=== PATIENT | female | born 1955 | race Caucasian/White ===

== ENCOUNTER 2016-11-19 16:07 | Emergency (ER) | payer BC ==
--- NOTE | 2016-11-19 17:39 | ER Document Report ---
ED Extremity Problem, Lower - General Chief Complaint: Fall, R leg, knee pain Stated Complaint: FALL,LEG PAIN Time Seen by Provider: 11/19/16 17:23 Mode of Arrival: Wheelchair Information source: Patient Notes: 61-year-old female presents to ED for pain to her right knee after she slipped and earlier today. She states she was walking on uneven sidewalk in [facility] when she tripped and fell and was able to walk to meet her at that time then she got in the car to start on her way home and within an hour later when they stopped she states she is unable to bear any weight on her foot on the right side states they got back in the car and drove to [place] to go to the bathroom and was again not able to bear weight on her right foot. So they drove home and came to the emergency room to have her knee checked out. States she knows she twisted her ankle and she fell on her right knee which has an abrasion and on her buttocks. She answers questions appropriately but was unable to bear weight when I transferred her to a wheelchair to go for her x-ray. TRAVEL OUTSIDE OF THE [place] IN LAST 30 DAYS: No - HPI Patient complains to provider of: Injury, Pain Location: Knee - right Occurred: This morning Where: Outdoors, Public place Onset/Duration: Sudden, Persistent Quality of pain: Burning, Sharp, Throbbing Severity: Severe Pain Level: 5 Context: Fell, Other Recent injury: Yes Associated symptoms: Painful ambulation Exacerbated by: Hanging down, Movement, Walking Relieved by: Nothing - Related Data Allergies/Adverse Reactions: Adhesive Bandage * [Adhesive Bandage] Allergy (Intermediate, Verified 10/08/13 18:54) Blisters amoxicillin trihydrate [From Augmentin] Allergy (Intermediate, Verified 18:54) Hives Potassium Clavulanate * [From Augmentin] Allergy (Intermediate, Verified 18:54) Hives acetaminophen [From Percocet] Allergy (Verified 03/07/14 12:13) oxycodone HCl [From Percocet] Allergy (Verified 03/07/14 12:13) Cat gut sutures Allergy (Intermediate, Uncoded 10/08/13 18:54) Blisters Past Medical History - General Information source: Patient - Social History Smoking Status: Never Smoker Cigarette use (# per day): No Chew tobacco use (# tins/day): No Smoking Education Provided: No Frequency of alcohol use: Rare Drug Abuse: None Occupation: [employer] consultant Lives with: Family Family History: CVA, DM, Hyperlipidemia, Hypertension, Thyroid Disfunction - Past Medical History Cardiac Medical History: Reports: Hx Hypercholesterolemia Pulmonary Medical History: Reports: Hx Asthma - childhood EENT Medical History: Reports: None Neurological Medical History: Reports: None Endocrine Medical History: Reports: Hx Hypothyroidism Renal/ Medical History: Reports: Other - Endometriosis Malignancy Medical History: Reports: Other - Thyroid cancer GI Medical History: Reports: Hx Diverticulitis, Hx Gastroesophageal Reflux Disease, Hx Hiatal Hernia, Hx Irritable Bowel, Hx Ulcer, Hx Colonoscopy, Hx Endoscopy, Other - Pancreatitis, a large section of her small and large intestines removed with a temporary ileostomy and reversal Musculoskeltal Medical History: Reports Hx Arthritis Skin Medical History: Reports None Psychiatric Medical History: Reports: Hx Anxiety, Hx Depression Traumatic Medical History: Reports: None Infectious Medical History: Reports: None Past Surgical History: Reports: Hx Abdominal Surgery - 12 inches of large intestines 6 inches small specimens removed, Hx Appendectomy, Hx Bowel Diversion - Temporary ileostomy and reversal in 2013, Hx Bowel Surgery, Hx Section - x1, Hx Cholecystectomy, Hx Hysterectomy, Hx Thyroid Surgery - Thyroidectomy, Other - Abdominal surgery to repair nonhealing wound - Immunizations Immunizations up to date: Yes Hx Diphtheria, Pertussis, Tetanus Vaccination: Yes Hx Pneumococcal Vaccination: 06/23/09 Review of Systems - Review of Systems Constitutional: No symptoms reported EENT: No symptoms reported Cardiovascular: No symptoms reported Respiratory: No symptoms reported Gastrointestinal: No symptoms reported Genitourinary: No symptoms reported Female Genitourinary: No symptoms reported Musculoskeletal: Other - Right knee pain after a fall with an abrasion Skin: Other - Abrasion right knee Hematologic/Lymphatic: No symptoms reported Neurological/Psychological: No symptoms reported -: Yes All other systems reviewed and negative Physical Exam - Vital signs Vitals: Temp Pulse Resp BP Pulse Ox 98.2 F 72 16 159/77 H 97 11/19/16 16:41 11/19/16 16:41 11/19/16 16:41 11/19/16 16:41 11/19/16 16:41 Interpretation: Normal - General General appearance: Appears well, Alert - HEENT Head: Normocephalic, Atraumatic Eyes: Normal Pupils: PERRL - Respiratory Respiratory status: No respiratory distress Chest status: Nontender Breath sounds: Normal Chest palpation: Normal - Cardiovascular Rhythm: Regular Heart sounds: Normal auscultation Murmur: No - Abdominal Inspection: Normal Distension: No distension Bowel sounds: Normal Tenderness: Nontender Organomegaly: No organomegaly - Back Back: Normal, Nontender - Extremities General upper extremity: Normal inspection, Nontender, Normal color, Normal ROM , Normal temperature General lower extremity: Normal color, Normal temperature Knee: Tender, Abrasion, Pain with ROM, Patellar tendon intact, Unable to bear weight. No: Deformity, Dislocation, Drawer's test instability, Ecchymosis, Instability, Joint effusion, Laceration, Laxity with valgus stress, Laxity with varus stress, Popliteal fossa tender, Tender joint line - Neurological Neuro grossly intact: Yes Cognition: Normal Orientation: AAOx4 [place] Coma Scale Eye Opening: Spontaneous Michael Coma Scale Verbal: Oriented Michael Coma Scale Motor: Obeys Commands Michael Coma Scale Total: 15 Speech: Normal Motor strength normal: LUE, RUE, LLE, RLE Sensory: Normal - Psychological Associated symptoms: Normal affect, Normal mood - Skin Skin Temperature: Warm Skin Moisture: Dry Skin Color: Normal Course - Re-evaluation Re-evalutation: 11/19/16 20:37 Discussed x-ray and CT results with patient and family. Written report and CD of results given to patient to follow-up with Dr. Sprague. Discussed x-ray and CT with Dr. Johnson. She recommended a long posterior splint with crutches and no weightbearing narcotics and follow-up with orthopedics. These were all completed and patient discharged home with a prescription for Tow as she is allergic to Percocet. - Vital Signs Vital signs: Temp Pulse Resp BP Pulse Ox 98.3 F 80 18 162/80 H 89 L 11/19/16 20:25 11/19/16 20:25 11/19/16 20:25 11/19/16 20:25 11/19/16 20:25 - Diagnostic Test Radiology reviewed: Image reviewed, Reports reviewed Procedures - Immobilization Right Knee Time completed: 20:38 Pre-Proc Neuro Vasc Exam: Normal Immobilizer type: Crutches, Long leg posterior Performed by: PCT Post-Proc Neuro Vasc Exam: Normal Alignment checked and good: Yes Discharge - Discharge Clinical Impression: Closed fracture of lateral portion of right tibial plateau Qualifiers: Encounter type: initial encounter Qualified Code(s): S82.121A - Displaced fracture of lateral condyle of right tibia, initial encounter for closed fracture Condition: Stable Disposition: HOME, SELF-CARE Additional Instructions: Fractured Tibia You have a fracture of the tibia, the crocker bone. The physician has assessed the seriousness of this fracture and has determined that no operation or hospitalization is required. The fracture should heal well, but must be monitored by re-examination and possibly X-rays. The initial treatment of this fracture is immobilization, ice packs, and elevation. A tibial fracture requires protection for about four to eight weeks, depending on the nature of the fracture and the age of the patient. Usually, a long-leg cast is required. Often no weight-bearing can be allowed at first despite casting. This type of fracture sometimes does not heal well. You MUST follow the doctors instructions, and call the doctor if you have any problems. Call the doctor or return at once if pain becomes severe, or if numbness or weakness develops in the foot or toes. No weightbearing until assessed by orthopedic. Do not let your toe touch the floor. SPLINT PRECAUTIONS: A splint has been placed. This will protect the area while healing begins. Your problem does NOT normally require a cast. It MUST, however, be held still! Keep the splint on ALL THE TIME until instructed to remove it by the doctor. As you begin to use the area, be careful. You shouldn't do anything which causes discomfort -- you may disturb the injury even with the splint in place. After the initial period of rest and elevation, if splint does not prevent pain when you move, come back. You may require placement of a different splint , or a cast. If there is unexpected severe pain, or numbness, discoloration, or swelling beyond the splint, you should return at once. If you feel that the splint has broken or become loose, come back. USE OF CRUTCHES: The doctor has recommended that you not bear weight at this time. You will need to use crutches. Adjust the crutches so the tops come to about two inches under the armpit while you are standing upright. Use your hands -- not your armpits -- to support your weight. To get into a chair, support yourself with one crutch on the injured side. Hold the chair with the other hand, then lower yourself while putting all your weight on the good leg. Going up stairs is `good leg up, step up, then bring up crutches and bad leg.' Down stairs is `bad leg and crutches down, then bring good leg down.' If you develop numbness or swelling in an arm or hand, you are using the crutches incorrectly. Return if you are having any problems with the crutches. ICE & ELEVATION: Apply ice packs frequently against the painful area. Many different schedules are recommended, such as "20 minutes on, 20 minutes off" or "one hour ice, two hours rest." If you need to work, you may need to go longer between ice treatments. You should plan to have the area ice packed AT LEAST one- fourth of the time. The ice should be applied over the wrap, tape, or splint, or over a layer of cloth -- not directly against the skin. Some ice bags have a built-in cloth and can be put directly on the skin. Your injured part should be elevated as much as possible over the next 48 hours. Try to keep the injury above the level of the heart. Avoid use of the injured area. Elevation and rest will decrease the swelling. ORAL NARCOTIC MEDICATION: You have been given a prescription for pain control. This medication is a narcotic. It's best taken with food, as nausea can result if taken on an empty stomach. Don't operate machinery or drive within six hours of taking this medication. Do not combine this medicine with alcohol, or with any medication which can cause sedation (such as cold tablets or sleeping pills) unless you get permission from the physician. Narcotics tend to cause constipation. If possible, drink plenty of fluids and eat a diet high in fiber and fruits. Please be aware that prescription narcotics also have the potential for abuse. People become addicted to these medications because of the general sense of wellbeing that they induce. This feeling along with a significant reduction in tension, anxiety, and aggression provides a stimulating seductive quality to these drugs. Once your pain is under control, we encourage you to discard your unused narcotics. Please return to ED for any increase in pain to the lower leg any increase in swelling to the lower leg. Any pain out of proportion to what you are feeling now. You will need to return to the emergency room right away if any of these symptoms occur. FOLLOW-UP CARE: If you have been referred to a physician for follow-up care, call the physician s office for an appointment as you were instructed or within the next two days. If you experience worsening or a significant change in your symptoms, notify the physician immediately or return to the Emergency Department at any time for re-evaluation. Prescriptions: Hydrocodone/Acetaminophen [Tow 5-325 mg Tablet] 1 tab PO Q4HP PRN #20 tablet PRN Reason: Forms: Elevated Blood Pressure, Return to Work Referrals: CODY SPRAGUE MD [ACTIVE STAFF] - Follow up as needed
[2016-11-19] MEDS ORDERED: KETOROLAC TROMETHAMINE 60 MG/2 ML SDV IM ONE (18:02)
--- NOTE | 2016-11-19 18:02 | RADIOLOGY REPORT (SQ) ---
EXAM DESCRIPTION: KNEE RIGHT 4 VIEWS COMPLETED DATE/TIME: 11/19/2016 5:42 pm REASON FOR STUDY: Pain s/p fall COMPARISON: None. NUMBER OF VIEWS: Four views. TECHNIQUE: AP, lateral, and both oblique radiographic images acquired of the right knee. LIMITATIONS: None. FINDINGS: MINERALIZATION: Osteopenia. BONES: There is a fracture involving the lateral aspect of the lateral tibial plateau with minimal de pression. The fracture is in the sagittal plane. JOINT: There is a small joint effusion. A small posterior superior spur is present on the patella. SOFT TISSUES: No soft tissue swelling. No radio-opaque foreign body. OTHER: No other significant finding. IMPRESSION: 1. Lateral tibial plateau fracture as described. 2. 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 TECHNICAL DOCUMENTATION: JOB ID: [id number]- All Rights Reserved
[2016-11-19] MEDS ORDERED: HYDROCODONE/ACETAMINOPHEN 5-325 MG TABLET PO ONE (18:06)
--- NOTE | 2016-11-19 19:14 | RADIOLOGY REPORT (SQ) ---
EXAM DESCRIPTION: CT RT LOWER EXTREMITY WITHOUT COMPLETED DATE/TIME: 11/19/2016 7:01 pm REASON FOR STUDY: tibial plateau fracture COMPARISON: Plain films dated 11/19/2016 TECHNIQUE: Axial imaging performed through the right knee with reformatted coronal and sagittal imag ing windowed for bone and soft tissues. Images saved to PACS. 3D IMAGING: Were 3D images as MIP, SSD, or volume rendering performed at the work station? No All CT scanners at this facility use dose modulation, iterative reconstruction, and/or weight based d osing when appropriate to reduce radiation dose to as low as reasonably achievable (ALARA). [facility]: Dose Right [facility]: CareDose [facility]: Dose Right [facility]: Teradose 4D [facility]: Smart Technologies LIMITATIONS: None. RADIATION DOSE: 4.12 mGy. FINDINGS: SOFT TISSUES: No obvious swelling or foreign body. BONES: The previously described lateral tibial plateau fracture is again identified. Fracture involv es the posterolateral portion of the lateral tibial plateau. There is minimal depression of the frac ture fragment. No other evidence for fracture is seen. MINERALIZATION: Normal. OTHER: Joint effusion is identified. IMPRESSION: Fracture of the lateral tibial plateau of the right knee as noted above TECHNICAL DOCUMENTATION: JOB ID: [id number] Quality ID # [id number]: Final reports with documentation of one or more dose reduction techniques (e.g., Au tomated exposure control, adjustment of the mA and/or kV according to patient size, use of iterative reconstruction technique) 2010 [employer]- All Rights Reserved
[2016-11-19 20:30] VITALS: BP 159/77
== END 2016-11-19 20:36 | disposition home or self-care (01) ==
LOC: ER 16:07
PROC: 2W3LX1Z Immobilization of Right Lower Extremity using Splint (ICD-10-PCS; principal; 2016-11-19)
DX: S82.121A Displaced fracture of lateral condyle of right tibia, initial encounter for closed fracture (principal); M79.604 Pain in right leg; M25.561 Pain in right knee; W01.0XXA Fall on same level from slipping, tripping and stumbling without subsequent striking against object, initial encounter; Y92.89 Other specified places as the place of occurrence of the external cause; E78.00 Pure hypercholesterolemia, unspecified; E03.9 Hypothyroidism, unspecified; Z88.0 Allergy status to penicillin; Z88.6 Allergy status to analgesic agent; Z85.850 Personal history of malignant neoplasm of thyroid; Z90.49 Acquired absence of other specified parts of digestive tract; Z90.710 Acquired absence of both cervix and uterus
CPT/HCPCS: 99284; 96372; 73564; 73700; 29505; J1885

== ENCOUNTER → 2017-03-05 | Outpatient (CLI) | payer BC ==
--- NOTE | 2017-03-06 10:13 | WOMENS IMAGING REPORT ---
EXAM DESCRIPTION: BILAT SCREENING MAMMO W/CAD COMPLETED DATE/TIME: 03/05/2017 10:40 am REASON FOR STUDY: SCREENING MAMMO Z12.31 ENCNTR SCREEN MAMMOGRAM FOR MALIGNANT NEOPLASM OF RAVINDER COMPARISON: Multiple since 2008 TECHNIQUE: Standard craniocaudal and mediolateral oblique views of each breast recorded using digita l acquisition. LIMITATIONS: None. FINDINGS: Findings present which are benign by mammographic criteria. No suspicious masses, calcifi cations or architectural distortion. Pertinent benign findings: Stable mildly prominent retroareolar ducts bilaterally Read with the assistance of CAD. .[facility] - R2 Cenova Version 1.3 .[facility] Imaging - R2 Cenova Version 1.3 .[facility] Imaging - R2 Cenova Version 2.4 .[facility] [place] - R2 Cenova Version 2.4 .[facility] - R2 Director Payer Version 9.2 Benign mammographic findings may include one or more of the following: Smooth masses, popcorn/rim/co arse calcifications, asymmetries, post-procedure changes, and lesions with long-standing stability. IMPRESSION: BENIGN MAMMOGRAPHIC FINDINGS. BIRADS 2 BREAST DENSITY: b. There are scattered areas of fibroglandular density. BIRAD: 2 BENIGN FINDING(S) RECOMMENDATION: ROUTINE SCREENING COMMENT: The patient has been notified of the results by letter per SA requirements. Additional no tification policies are in place for contacting patient with suspicious or incomplete findings. Quality ID #225: The [place] [employer] recommends an annual screening mammogram for women aged 40 years or over. This facility utilizes a reminder system to ensure that all patients receive reminder letters, and/or direct phone calls for appointments. This includes reminders for routine scr eening mammograms, diagnostic mammograms, or other Breast Imaging Interventions when appropriate. Th is patient will be placed in the appropriate reminder system. The [place] [employer] (ACR) has developed recommendations for screening MRI of the breast s in certain patient populations, to be used in conjunction with mammography. Breast MRI surveillanc e may be appropriate for women with more than 20% lifetime risk of developing breast cancer as deter mined by genetic testing, significant family history of the disease, or history of mantle radiation f or Hodgkins Disease. ACR Practice Guidelines 2008. TECHNICAL DOCUMENTATION: FINDING NUMBER: (1) ASSESSMENT: (1) JOB ID: [id number] [employer]- All Rights Reserved
== END ==
LOC: WI 08:43
PROVIDERS: ATTEND Family Medicine
DX: Z12.31 Encounter for screening mammogram for malignant neoplasm of breast (principal); Z78.0 Asymptomatic menopausal state
CPT/HCPCS: 77067; G0202

== ENCOUNTER → 2017-03-06 | Outpatient (CLI) | payer BC | LOC: OD 09:47 | PROVIDERS: ATTEND Family Medicine | DX: R07.89 Other chest pain (principal) | CPT/HCPCS: 36415; 85379 ==

== ENCOUNTER → 2017-12-01 | Outpatient (CLI) | payer BC ==
--- NOTE | 2017-12-01 10:52 | WOMENS IMAGING REPORT ---
EXAM DESCRIPTION: U/S ABDOMEN LIMITED COMPLETED DATE/TIME: 12/01/2017 9:59 am REASON FOR STUDY: VENTRAL HERNIA WITHOUT OBSTRUCTION K43.9 VENTRAL HERNIA WITHOUT OBSTRUCTION OR GA NGRENE COMPARISON: None. TECHNIQUE: Dynamic and static grayscale images acquired of the abdomen and recorded on PACS. Additio suraj selected color Doppler and spectral images recorded. LIMITATIONS: None. FINDINGS: LEFT KIDNEY: The left kidney measures 11.4 x 5.2 x 4.9 cm, normal size. Normal echogenic ity. No solid or suspicious masses. No hydronephrosis. No calcifications. SPLEEN: The spleen measures 10.4 cm in length, normal size. PERITONEAL AND RIGHT PLEURAL SPACE: No ascites or effusions. OTHER: A small umbilical hernia is visualized. No evidence of hernia visualized by ultrasound examination at the palpable site in the left upper flori drant of the abdomen. IMPRESSION: 1. Small umbilical hernia is visualized. This finding correlates to the CT examination dated 12/26/2014. 2. No evidence of hernia visualized by ultrasound examination at the palpable site in the left upper quadrant of the abdomen. TECHNICAL DOCUMENTATION: JOB ID: [id number] [employer]- All Rights Reserved Reading location - IP/workstation name: [email or web address]
== END ==
LOC: WI 08:14
PROVIDERS: ATTEND Family Medicine
DX: K43.9 Ventral hernia without obstruction or gangrene (principal)
CPT/HCPCS: 76705

== ENCOUNTER → 2018-03-17 | Outpatient (CLI) | payer BC ==
--- NOTE | 2018-03-17 16:10 | WOMENS IMAGING REPORT ---
EXAM DESCRIPTION: BONE DENSITY HIP/SPINE COMPLETED DATE/TIME: 03/17/2018 4:02 pm REASON FOR STUDY: BONE DENSITY TEST/Z78.0 Z12.31 ENCNTR SCREEN MAMMOGRAM FOR MALIGNANT NEOPLASM OF RAVINDER COMPARISON: 2009, 2012, 2015 TECHNIQUE: Dual-Energy X-ray Absorptiometry (DEXA) of the AP Spine and Hip. LIMITATIONS: None. FINDINGS: LUMBAR SPINE: The bone mineral density (BMD) measured from L1-L4 in the AP projection correlates with a T-score of -1.2, which is osteopenic as defined by the World Health Organization. This is stable compared to 20 16 HIP: The bone mineral density (BMD) measured in the left femoral neck at the hip correlates with a T-score of -3.0, which is osteoporotic as defined by the World Health Organization. This represents an 11% decline in bone density since 2016 IMPRESSION: 1. LUMBAR SPINE: Osteopenic 2. HIP: Osteoporotic COMMENT: The World Health Organization defines low BMD as follows: T-score: Normal: Greater than -1.0 Osteopenia: Between -1.0 and -2.5 Osteoporosis: Less than -2.5 without fractures Established osteoporosis: Less than -2.5 with fractures In general, you may wish to consider: Diagnosis Treatment Follow-up DEXA Normal BMD Prevention 2-3 years Osteopenia Prevention/Therapy 1-2 years Osteoporosis Therapy Yearly TECHNICAL DOCUMENTATION: JOB ID: [id number] [employer]- All Rights Reserved Reading location - IP/workstation name: [email or web address]
--- NOTE | 2018-03-17 16:12 | WOMENS IMAGING REPORT ---
EXAM DESCRIPTION: 3D SCREENING MAMMO BILAT COMPLETED DATE/TIME: 03/17/2018 4:01 pm REASON FOR STUDY: BILATERAL SCREENING MAMMO/Z12.31 Z12.31 ENCNTR SCREEN MAMMOGRAM FOR MALIGNANT JEN PLASM OF RAVINDER COMPARISON: [id number] TECHNIQUE: Standard craniocaudal and mediolateral oblique views of each breast recorded using digita l acquisition and breast tomosynthesis. LIMITATIONS: None. FINDINGS: No masses, calcifications or architectural distortion. No areas of suspicion. Read with the assistance of CAD. .[facility] - R2 Cenova Version 1.3 .[facility] Imaging - R2 Cenova Version 1.3 .[facility] Imaging - R2 Cenova Version 2.4 .[facility] [place] R2 Cenova Version 2.4 .[facility] - R2 Breeding Manager Version 9.2 IMPRESSION: NORMAL MAMMOGRAM. BIRADS 1. BREAST DENSITY: b. There are scattered areas of fibroglandular density. BIRAD: 1 NEGATIVE RECOMMENDATION: ROUTINE SCREENING COMMENT: The patient has been notified of the results by letter per SA requirements. Additional no tification policies are in place for contacting patient with suspicious or incomplete findings. Quality ID #225: The [place] [employer] recommends an annual screening mammogram for women aged 40 years or over. This facility utilizes a reminder system to ensure that all patients receive reminder letters, and/or direct phone calls for appointments. This includes reminders for routine scr eening mammograms, diagnostic mammograms, or other Breast Imaging Interventions when appropriate. Th is patient will be placed in the appropriate reminder system. The [place] [employer] (ACR) has developed recommendations for screening MRI of the breast s in certain patient populations, to be used in conjunction with mammography. Breast MRI surveillanc e may be appropriate for women with more than 20% lifetime risk of developing breast cancer as deter mined by genetic testing, significant family history of the disease, or history of mantle radiation f or Hodgkins Disease. ACR Practice Guidelines 2008. DBT Technology DBT is a type of tomographic mammography. With conventional mammography, overlapping breast tissue ma y make lesions difficult to detect, even with good compression. DBT uses an x-ray tube that rotates a round the breast, taking images at different angles. These images are then combined to create thin sl ices of the breast that the radiologist can view as a 3D reconstruction. The [employer] unit can perform full-field digital mammograms (2D imaging); or DBT (3D imaging); or both, in a combination mode that quickly performs both the mammogram and the tomosynthesis scan while the breast is still compressed. PQRS 6045F: Fluoroscopic imaging is not utilized for breast tomosynthesis. TECHNICAL DOCUMENTATION: FINDING NUMBER: (1) ASSESSMENT: (1) JOB ID: [id number] [employer]- All Rights Reserved Reading location - IP/workstation name: [email or web address]
== END ==
LOC: WI 15:20
PROVIDERS: ATTEND Family Medicine
DX: Z12.31 Encounter for screening mammogram for malignant neoplasm of breast (principal); Z78.0 Asymptomatic menopausal state
CPT/HCPCS: 77063; 77067; 77080

== ENCOUNTER 2018-08-15 11:13 | Emergency (ER) | payer BC ==
[2018-08-15] MEDS ORDERED: NORMAL SALINE 1000 ML 1,000 ML IV ONE (11:30)
[2018-08-15] MEDS ORDERED: ONDANSETRON HCL INJ/PF 4 MG/2 ML SDV IV ONE (11:31)
--- NOTE | 2018-08-15 11:31 | ER Document Report ---
ED General - General Chief Complaint: Abdominal Pain Stated Complaint: VOMITING,DIARRHEA Time Seen by Provider: 08/15/18 11:24 Primary Care Provider: MENDY JARAMILLO MD [Primary Care Provider] - Follow up as needed TRAVEL OUTSIDE OF THE [place] IN LAST 30 DAYS: No - Related Data Allergies/Adverse Reactions: Adhesive Bandage * [Adhesive Bandage] Allergy (Intermediate, Verified 08/15/18 11:14) Blisters amoxicillin trihydrate [From Augmentin] Allergy (Intermediate, Verified 08/15/18 11:14) Hives Potassium Clavulanate * [From Augmentin] Allergy (Intermediate, Verified 08/15/18 11:14) Hives acetaminophen [From Percocet] Allergy (Verified 08/15/18 11:14) oxycodone HCl [From Percocet] Allergy (Verified 08/15/18 11:14) Cat gut sutures Allergy (Intermediate, Uncoded 08/15/18 11:14) Blisters Past Medical History - Social History Smoking Status: Unknown if Ever Smoked Chew tobacco use (# tins/day): No Frequency of alcohol use: None Drug Abuse: None Family History: CVA, DM, Hyperlipidemia, Hypertension, Thyroid Disfunction Patient has suicidal ideation: No Patient has homicidal ideation: No - Past Medical History Cardiac Medical History: Reports: Hx Hypercholesterolemia Pulmonary Medical History: Reports: Hx Asthma - childhood Denies: Hx Tuberculosis Endocrine Medical History: Reports: Hx Hypothyroidism Renal/ Medical History: Denies: Hx Peritoneal Dialysis GI Medical History: Reports: Hx Diverticulitis, Hx Gastroesophageal Reflux Disease, Hx Hiatal Hernia, Hx Irritable Bowel, Hx Ulcer, Hx Colonoscopy, Hx Endoscopy Musculoskeletal Medical History: Reports Hx Arthritis Psychiatric Medical History: Reports: Hx Anxiety, Hx Depression Past Surgical History: Reports: Hx Abdominal Surgery - 12 inches of large intestines 6 inches small specimens removed, Hx Appendectomy, Hx Bowel Diversion - Temporary ileostomy and reversal in 2013, Hx Bowel Surgery, Hx Section - x1, Hx Cholecystectomy, Hx Gynecologic Surgery - hysterectomy, Hx Hysterectomy, Hx Thyroid Surgery - Thyroidectomy, Other - Abdominal surgery to repair nonhealing wound - Immunizations Immunizations up to date: Yes Hx Diphtheria, Pertussis, Tetanus Vaccination: Yes Hx Pneumococcal Vaccination: 06/23/09 Physical Exam - Vital signs Vitals: Temp Pulse Resp BP Pulse Ox 97.7 F 114 H 18 128/59 H 97 08/15/18 11:18 08/15/18 11:18 08/15/18 11:18 08/15/18 11:18 08/15/18 11:18 Course - Vital Signs Vital signs: Temp Pulse Resp BP Pulse Ox 97.7 F 114 H 18 128/59 H 97 08/15/18 11:18 08/15/18 11:18 08/15/18 11:18 08/15/18 11:18 08/15/18 11:18 Discharge - Discharge Referrals: MENDY JARAMILLO MD [Primary Care Provider] - Follow up as needed
--- NOTE | 2018-08-15 11:42 | ER Document Report ---
ED Medical Screen (RME) - General Chief Complaint: Abdominal Pain Stated Complaint: VOMITING,DIARRHEA Time Seen by Provider: 08/15/18 11:24 Primary Care Provider: MENDY JARAMILLO MD [Primary Care Provider] - Follow up as needed Notes: Patient is a 63-year-old female that presents to the emergency department for chief complaint of nausea, vomiting and diarrhea. Patient states his symptoms started last night and persisted this morning, she is had multiple episodes of watery diarrhea, none bilious and nonbloody vomiting she said leg cramping, feels that she got dehydrated. ROS: Other than noted above, the 12 point review of systems was reviewed with the patient and were negative, all pertinent findings are included in the HPI. PHYSICAL EXAMINATION: Vital signs reviewed. GENERAL: Patient appears uncomfortable HEAD: Atraumatic, normocephalic. EYES: Pupils equal round extraocular movements intact, conjunctiva are normal. ENT: Nares patent NECK: Normal range of motion CV: Heart rate tachycardic, regular rhythm LUNGS: No respiratory distress Musculoskeletal: Normal range of motion NEUROLOGICAL: Normal speech PSYCH: Normal mood, normal affect. MDM: Patient seen and examined for rapid initial assessment. Vital signs reviewed. She did have an episode of emesis in the triage area. A comprehensive ED assessment and evaluation of the patient, analysis of test results and completion of the medical decision making process will be conducted by additional ED providers. *Note is created using voice recognition software and may contain spelling, syntax or grammatical errors. TRAVEL OUTSIDE OF THE [place] IN LAST 30 DAYS: No - Related Data Allergies/Adverse Reactions: Adhesive Bandage * [Adhesive Bandage] Allergy (Intermediate, Verified 08/15/18 11:14) Blisters amoxicillin trihydrate [From Augmentin] Allergy (Intermediate, Verified 08/15/18 11:14) Hives Potassium Clavulanate * [From Augmentin] Allergy (Intermediate, Verified 08/15/18 11:14) Hives acetaminophen [From Percocet] Allergy (Verified 08/15/18 11:14) oxycodone HCl [From Percocet] Allergy (Verified 08/15/18 11:14) Cat gut sutures Allergy (Intermediate, Uncoded 08/15/18 11:14) Blisters Past Medical History - Social History Chew tobacco use (# tins/day): No Frequency of alcohol use: None Drug Abuse: None - Past Medical History Cardiac Medical History: Reports: Hx Hypercholesterolemia Pulmonary Medical History: Reports: Hx Asthma - childhood Denies: Hx Tuberculosis Endocrine Medical History: Reports: Hx Hypothyroidism Renal/ Medical History: Denies: Hx Peritoneal Dialysis GI Medical History: Reports: Hx Diverticulitis, Hx Gastroesophageal Reflux Disease, Hx Hiatal Hernia, Hx Irritable Bowel, Hx Ulcer, Hx Colonoscopy, Hx Endoscopy Musculoskeltal Medical History: Reports Hx Arthritis Psychiatric Medical History: Reports: Hx Anxiety, Hx Depression Past Surgical History: Reports: Hx Abdominal Surgery - 12 inches of large intestines 6 inches small specimens removed, Hx Appendectomy, Hx Bowel Diversion - Temporary ileostomy and reversal in 2013, Hx Bowel Surgery, Hx Section - x1, Hx Cholecystectomy, Hx Gynecologic Surgery - hysterectomy, Hx Hysterectomy, Hx Thyroid Surgery - Thyroidectomy, Other - Abdominal surgery to repair nonhealing wound - Immunizations Immunizations up to date: Yes Hx Diphtheria, Pertussis, Tetanus Vaccination: Yes Physical Exam - Vital signs Vitals: Temp Pulse Resp BP Pulse Ox 97.7 F 114 H 18 128/59 H 97 08/15/18 11:18 08/15/18 11:18 08/15/18 11:18 08/15/18 11:18 08/15/18 11:18 Course - Vital Signs Vital signs: Temp Pulse Resp BP Pulse Ox 97.7 F 114 H 18 128/59 H 97 08/15/18 11:18 08/15/18 11:18 08/15/18 11:18 08/15/18 11:18 08/15/18 11:18 Doctor's Discharge - Discharge Referrals: MENDY JARAMILLO MD [Primary Care Provider] - Follow up as needed
[2018-08-15 12:11] LABS: HEMATOCRIT 44.2 % (36.0-47.0); MEAN CORPUSCULAR HEMOGLOBIN 27.3 pg (27.0-33.4); MEAN CORPUSCULAR HGB CONC 33.8 g/dL (32.0-36.0); MEAN CORPUSCULAR VOLUME 81 fl (80-97); PLATELET COUNT 374 10^3/uL (150-450); RED BLOOD COUNT 5.47 10^6/uL (3.72-5.28); RED CELL DISTRIBUTION WIDTH 15.1 % (11.5-14.0); WHITE BLOOD COUNT 12.8 10^3/uL (4.0-10.5)
[2018-08-15 12:26] LABS: ALANINE AMINOTRANSFERASE 36 U/L (9-52); ALBUMIN 4.9 g/dL (3.5-5.0); ALKALINE PHOSPHATASE 112 U/L (38-126); ANION GAP 15 (5-19); ASPARTATE AMINO TRANSFERASE 26 U/L (14-36); BILIRUBIN,DIRECT 0.2 mg/dL (0.0-0.4); BILIRUBIN,TOTAL 1.1 mg/dL (0.2-1.3); BLOOD UREA NITROGEN 22 mg/dL (7-20); CALCIUM 10.4 mg/dL (8.4-10.2); CARBON DIOXIDE 23 mmol/L (22-30); CHLORIDE 103 mmol/L (98-107); GLUCOSE 129 mg/dL (75-110); LIPASE 162.6 U/L (23-300); POTASSIUM 4.9 mmol/L (3.6-5.0); TOTAL PROTEIN 7.8 g/dL (6.3-8.2)
[2018-08-15 12:50] LABS: ABSOLUTE LYMPHOCYTES# (MANUAL) 0.6 10^3/uL (0.5-4.7); ABSOLUTE MONOCYTES # (MANUAL) 0.1 10^3/uL (0.1-1.4); ABSOLUTE NEUTROPHILS# (MANUAL) 11.8 10^3/uL (1.7-8.2); BASOPHILS % (MANUAL) 0 % (0-2); EOSINOPHILS % (MANUAL) 2 % (0-6); LYMPHOCYTES % (MANUAL) 5 % (13-45); MONOCYTES % (MANUAL) 1 % (3-13); SEGMENTED NEUTROPHILS % (MAN) 92 % (42-78); TOTAL CELLS COUNTED 100
[2018-08-15 12:51] LABS: ANISOCYTOSIS SLIGHT; PLATELET COMMENT ADEQUATE; POLYCHROMASIA SLIGHT
[2018-08-15 13:50] LABS: APPEARANCE,URINE CLOUDY; BILIRUBIN,URINE NEGATIVE (NEGATIVE); COLOR,URINE AMBER; GLUCOSE, URINE NEGATIVE (NEGATIVE); KETONES,URINE NEGATIVE (NEGATIVE); LEUKOCYTE ESTERASE,URINE TRACE (NEGATIVE); NITRITE,URINE NEGATIVE (NEGATIVE); PROTEIN,URINE 100 mg/dL (NEGATIVE); URINE SPECIFIC GRAVITY 1.021; UROBILINOGEN,URINE NEGATIVE mg/dL (<2.0)
--- NOTE | 2018-08-15 14:09 | ER Document Report ---
ED GI/ - General Chief Complaint: Abdominal Pain Stated Complaint: VOMITING,DIARRHEA Time Seen by Provider: 08/15/18 11:24 Primary Care Provider: MENDY JARAMILLO MD [Primary Care Provider] - Follow up as needed Notes: 63-year-old female patient emergency department chief complaint of 12-hour history of nausea, vomiting, diarrhea. Patient has some achy abdominal pain but not severe at this time. Patient is concerned because she has had diverticulitis with colon resection in the past. Has had a bowel obstruction in the past. Denies any fever, chills, sweats. Had multiple episodes of vomiting. Has not vomited since getting some IV fluids and Zofran here. Denies any blood in her stool. Patient does report a recent antibiotic use of a Z-James within the last 30 days. TRAVEL OUTSIDE OF THE [place] IN LAST 30 DAYS: No - HPI Patient complains to provider of: Abdominal pain, Diarrhea, Vomiting Onset: Just prior to arrival Timing/Duration: Sudden Quality of pain: Achy, Cramping Severity at maximum: Mild Severity in ED: Mild Pain Level: 1 - Related Data Allergies/Adverse Reactions: Adhesive Bandage * [Adhesive Bandage] Allergy (Intermediate, Verified 08/15/18 11:14) Blisters amoxicillin trihydrate [From Augmentin] Allergy (Intermediate, Verified 08/15/18 11:14) Hives Potassium Clavulanate * [From Augmentin] Allergy (Intermediate, Verified 08/15/18 11:14) Hives acetaminophen [From Percocet] Allergy (Verified 08/15/18 11:14) oxycodone HCl [From Percocet] Allergy (Verified 08/15/18 11:14) Cat gut sutures Allergy (Intermediate, Uncoded 08/15/18 11:14) Blisters Past Medical History - General Information source: Patient - Social History Smoking Status: Unknown if Ever Smoked Chew tobacco use (# tins/day): No Frequency of alcohol use: None Drug Abuse: None Family History: CVA, DM, Hyperlipidemia, Hypertension, Thyroid Disfunction Patient has suicidal ideation: No Patient has homicidal ideation: No - Past Medical History Cardiac Medical History: Reports: Hx Hypercholesterolemia Pulmonary Medical History: Reports: Hx Asthma - childhood Denies: Hx Tuberculosis Endocrine Medical History: Reports: Hx Hypothyroidism Renal/ Medical History: Denies: Hx Peritoneal Dialysis GI Medical History: Reports: Hx Diverticulitis, Hx Gastroesophageal Reflux Disease, Hx Hiatal Hernia, Hx Irritable Bowel, Hx Ulcer, Hx Colonoscopy, Hx Endoscopy Musculoskeletal Medical History: Reports Hx Arthritis Psychiatric Medical History: Reports: Hx Anxiety, Hx Depression Past Surgical History: Reports: Hx Abdominal Surgery - 12 inches of large intestines 6 inches small specimens removed, Hx Appendectomy, Hx Bowel Diversion - Temporary ileostomy and reversal in 2014, Hx Bowel Surgery, Hx Section - x1, Hx Cholecystectomy, Hx Gynecologic Surgery - hysterectomy, Hx Hysterectomy, Hx Thyroid Surgery - Thyroidectomy, Other - Abdominal surgery to repair nonhealing wound - Immunizations Immunizations up to date: Yes Hx Diphtheria, Pertussis, Tetanus Vaccination: Yes Hx Pneumococcal Vaccination: 06/23/09 Review of Systems - Review of Systems Notes: Constitutional: denies: Chills, Diaphoresis, Fever, Malaise, Weakness EENT: denies: Eye discharge, Blurred vision, Tearing, Double vision, Nose congestion, Nose discharge, Throat swelling, Mouth pain Cardiovascular: denies: Palpitations, Heart racing, Orthopnea, Dyspnea, Chest pain Respiratory: denies: Cough, Hurts to breathe, Wheezing, Shortness of breath Gastrointestinal: Abdominal cramps, nausea, vomiting, diarrhea Genitourinary: denies: Burning, Dysuria, Discharge, Frequency, Flank pain, Hematuria Musculoskeletal: denies: Joint pain, Joint swelling, Muscle pain, Muscle stiffness, back pain Hematologic/Lymphatic: denies: Anemia, Easy bleeding, Easy bruising, Blood clots Neurological/Psychological: denies: Confusion, Dementia, Depression, Loss of consciousness Skin: No lesions, no masses, no skin breakdown, no abscesses Physical Exam - Vital signs Vitals: Temp Pulse Resp BP Pulse Ox 97.7 F 114 H 18 128/59 H 97 08/15/18 11:18 08/15/18 11:18 08/15/18 11:18 08/15/18 11:18 08/15/18 11:18 Interpretation: Normal - General General appearance: Appears well, Alert - HEENT Head: Normocephalic, Atraumatic Eyes: Normal Pupils: PERRL - Respiratory Respiratory status: No respiratory distress Chest status: Nontender Breath sounds: Normal Chest palpation: Normal - Cardiovascular Rhythm: Regular Heart sounds: Normal auscultation Murmur: No - Abdominal Inspection: Normal Distension: No distension Bowel sounds: Normal Tenderness: Nontender Organomegaly: No organomegaly - Back Back: Normal, Nontender - Extremities General upper extremity: Normal inspection, Nontender, Normal color, Normal ROM, Normal temperature General lower extremity: Normal inspection, Nontender, Normal color, Normal ROM, Normal temperature, Normal weight bearing. No: Nadia's sign - Neurological Neuro grossly intact: Yes Cognition: Normal Orientation: AAOx4 [place] Coma Scale Eye Opening: Spontaneous [place] Coma Scale Verbal: Oriented Michael Coma Scale Motor: Obeys Commands [place] Coma Scale Total: 15 Speech: Normal Motor strength normal: LUE, RUE, LLE, RLE Sensory: Normal - Psychological Associated symptoms: Normal affect, Normal mood - Skin Skin Temperature: Warm Skin Moisture: Dry Skin Color: Normal Course - Re-evaluation Re-evalutation: 08/15/18 15:58 Laboratory 08/15/18 08/15/18 08/15/18 11:42 11:42 13:17 WBC 12.8 H RBC 5.47 H Hgb 15.0 Hct 44.2 MCV 81 MCH 27.3 MCHC 33.8 RDW 15.1 H Plt Count 374 Total Counted 100 Seg Neutrophils % Not Reportable Seg Neuts % (Manual) 92 H Lymphocytes % Not Reportable Lymphocytes % (Manual) 5 L Monocytes % Not Reportable Monocytes % (Manual) 1 L Eosinophils % Not Reportable Eosinophils % (Manual) 2 Basophils % Not Reportable Basophils % (Manual) 0 Absolute Neutrophils Not Reportable Abs Neuts (Manual) 11.8 H Absolute Lymphocytes Not Reportable Abs Lymphs (Manual) 0.6 Absolute Monocytes Not Reportable Abs Monocytes (Manual) 0.1 Absolute Eosinophils Not Reportable Absolute Eos (Manual) 0.3 Absolute Basophils Not Reportable Abs Basophils (Manual) 0.0 Platelet Comment ADEQUATE Polychromasia SLIGHT Anisocytosis SLIGHT Sodium 141.0 Potassium 4.9 Chloride 103 Carbon Dioxide 23 Anion Gap 15 BUN 22 H Creatinine 1.27 H Est GFR ( Amer) 51 L Est GFR (Non-Af Amer) 42 L Glucose 129 H Calcium 10.4 H Total Bilirubin 1.1 Direct Bilirubin 0.2 Neonat Total Bilirubin Not Reportable Neonat Direct Bilirubin Not Reportable Neonat Indirect Bili Not Reportable AST 26 ALT 36 Alkaline Phosphatase 112 Total Protein 7.8 Albumin 4.9 Lipase 162.6 Urine Color [place] Urine Appearance CLOUDY Urine pH 6.0 Ur Specific [place] 1.021 Urine Protein 100 H Urine Glucose (UA) NEGATIVE Urine Ketones NEGATIVE Urine Blood MODERATE H Urine Nitrite NEGATIVE Urine Bilirubin NEGATIVE Urine Urobilinogen NEGATIVE Ur Leukocyte Esterase TRACE H Urine WBC (Auto) 9 Urine RBC (Auto) 10 Squamous Epi Cells Auto 4 Urine Mucus (Auto) MANY Urine Ascorbic Acid NEGATIVE Acute Abdomen Series 08/15/18 14:48 IMPRESSION: NONSPECIFIC BOWEL GAS PATTERN WITHOUT EVIDENCE FOR OBSTRUCTION. At this time patient has not had any more episodes of diarrhea or vomiting. She feels better. She deftly has increased risk factors for possible bowel obstruction as well as some recent antibiotic use which is concerning for possible C. difficile. She was in the ER for quite some time and unable to provide a stool sample. She has tolerated p.o. and she would like to go home. I spent a significant amount of time discussing the need for close outpatient follow-up especially a repeat evaluation in the next 12 or 24 hours his symptoms are getting worse as a bowel obstruction could progress and C. difficile has not been ruled out. I would like to send her home with a stool collection kit. Patient seems comfortable with this plan. is at bedside and is comfortable with the plan. We will discharge at this time with a presumptive diagnosis of gastroenteritis however I have explained to them that this is simply a presumptive diagnosis and that more serious pathology could exist. - Vital Signs Vital signs: Temp Pulse Resp BP Pulse Ox 97.7 F 97 18 138/67 H 99 08/15/18 11:18 08/15/18 16:26 08/15/18 16:26 08/15/18 16:26 08/15/18 16:26 - Laboratory Result Diagrams: 08/15/18 11:42 08/15/18 11:42 Laboratory results interpreted by me: 08/15/18 08/15/18 08/15/18 11:42 11:42 13:17 WBC 12.8 H RBC 5.47 H RDW 15.1 H Seg Neuts % (Manual) 92 H Lymphocytes % (Manual) 5 L Monocytes % (Manual) 1 L Abs Neuts (Manual) 11.8 H BUN 22 H Creatinine 1.27 H Est GFR ( Amer) 51 L Est GFR (Non-Af Amer) 42 L Glucose 129 H Calcium 10.4 H Urine Protein 100 H Urine Blood MODERATE H Ur Leukocyte Esterase TRACE H Discharge - Discharge Clinical Impression: Gastroenteritis Condition: Good Disposition: HOME, SELF-CARE Instructions: Abdominal Pain ([facility]), Gastroenteritis (adult) ([facility]) Additional Instructions: You have had significant abdominal surgeries in the past which make you at an increased risk for a bowel obstruction. Please note that if your symptoms are getting worse over the next 24 hours it will be imperative that someone lay hands on you and reevaluate you. Please do not hesitate to come back as these symptoms can sometimes be very difficult to figure out the cause. You are also at an increased risk for developing Clostridium difficile colitis as you were on antibiotics within the last 30 days. If possible, return your stool sample to the lab at the hospital for analysis. In the event that you develop any bloody diarrhea, worsening diarrhea, worsening abdominal pain, worsening vomiting or any other symptoms you should be seen immediately. Prescriptions: Ondansetron [Zofran Odt 4 mg Tablet] 1 - 2 tab PO Q4H PRN 5 Days #15 tab.rapdis PRN Reason: For Nausea/Vomiting Promethazine HCl [Phenergan 25 mg Tablet] 1 - 2 tab PO Q6H PRN 5 Days #15 tablet PRN Reason: Forms: Follow-Up Laboratory Testing Referrals: MENDY JARAMILLO MD [Primary Care Provider] - Follow up as needed
--- NOTE | 2018-08-15 15:26 | RADIOLOGY REPORT (SQ) ---
EXAM DESCRIPTION: ACUTE ABDOMEN SERIES COMPLETED DATE/TIME: 08/15/2018 3:13 pm REASON FOR STUDY: abd pain, diarrhea COMPARISON: 2013 NUMBER OF VIEWS: Three views. TECHNIQUE: PA chest, supine abdomen and upright/decubitus abdomen radiographic images acquired. LIMITATIONS: None. FINDINGS: CHEST: Lungs clear of infiltrates. FREE AIR: None. No abnormal gas collections. BOWEL GAS PATTERN: Few scattered small bowel loops with air fluid levels. No distended large or small bowel loops. CALCIFICATIONS: No suspicious calcifications. HARDWARE: Anastomosis pelvis. Multiple clips. SOFT TISSUES: No gross mass or suggestion of organomegaly. BONES: No acute fracture. No worrisome bone lesions. OTHER: No other significant finding. IMPRESSION: NONSPECIFIC BOWEL GAS PATTERN WITHOUT EVIDENCE FOR OBSTRUCTION. TECHNICAL DOCUMENTATION: JOB ID: [id number] [employer]- All Rights Reserved Reading location - IP/workstation name: [email or web address]
[2018-08-15 16:27] VITALS: BP 138/67
== END 2018-08-15 16:27 | disposition home or self-care (01) ==
LOC: ER 11:13
DX: K52.9 Noninfective gastroenteritis and colitis, unspecified (principal); R11.2 Nausea with vomiting, unspecified; R10.9 Unspecified abdominal pain; Z87.19 Personal history of other diseases of the digestive system; Z90.49 Acquired absence of other specified parts of digestive tract; Z88.0 Allergy status to penicillin; Z88.6 Allergy status to analgesic agent; Z88.5 Allergy status to narcotic agent; Z88.8 Allergy status to other drugs, medicaments and biological substances
CPT/HCPCS: 99284; 96361; 96374; 36415; 83690; 85025; 80053; 81001; 74022; J2405; J7030

== ENCOUNTER → 2018-08-16 | Outpatient (CLI) | payer BC | LOC: LAB 15:25 | PROVIDERS: ATTEND Emergency Medicine | DX: R19.7 Diarrhea, unspecified (principal) | CPT/HCPCS: 87493 ==

== ENCOUNTER → 2018-08-20 | Outpatient (CLI) | payer BC ==
[2018-08-20 11:49] LABS: ABSOLUTE EOSINOPHILS # (AUTO) 0.1 10^3/uL (0.0-0.6); ABSOLUTE LYMPHOCYTES (AUTO) 1.3 10^3/uL (0.5-4.7); ABSOLUTE MONOCYTES (AUTO) 0.4 10^3/uL (0.1-1.4); ABSOLUTE NEUT (AUTO) 4.4 10^3/uL (1.7-8.2); BASOPHILS % (AUTO) 0.6 % (0-2); HEMATOCRIT 38.8 % (36.0-47.0); HEMOGLOBIN 13.2 g/dL (12.0-15.5); LYMPHOCYTES % (AUTO) 21.4 % (13-45); MEAN CORPUSCULAR HEMOGLOBIN 27.3 pg (27.0-33.4); MEAN CORPUSCULAR HGB CONC 34.1 g/dL (32.0-36.0); MEAN CORPUSCULAR VOLUME 80 fl (80-97); MONOCYTES % (AUTO) 5.7 % (3-13); PLATELET COUNT 303 10^3/uL (150-450); RED BLOOD COUNT 4.86 10^6/uL (3.72-5.28); RED CELL DISTRIBUTION WIDTH 14.8 % (11.5-14.0); SEGMENTED NEUTROPHILS % (AUTO) 71.3 % (42-78); TOTAL CELLS COUNTED % (AUTO) 100 %; WHITE BLOOD COUNT 6.2 10^3/uL (4.0-10.5)
[2018-08-20 12:13] LABS: ANION GAP 10 (5-19); BLOOD UREA NITROGEN 18 mg/dL (7-20); CALCIUM 9.6 mg/dL (8.4-10.2); CARBON DIOXIDE 27 mmol/L (22-30); CHLORIDE 107 mmol/L (98-107); GLUCOSE 101 mg/dL (75-110); POTASSIUM 4.3 mmol/L (3.6-5.0); SODIUM 143.9 mmol/L (137-145)
== END ==
LOC: OD 11:01
PROVIDERS: ATTEND Family Medicine
DX: A09 Infectious gastroenteritis and colitis, unspecified (principal)
CPT/HCPCS: 36415; 80048; 85025

== ENCOUNTER → 2019-03-18 | Outpatient (CLI) | payer BC ==
--- NOTE | 2019-03-19 10:26 | WOMENS IMAGING REPORT ---
EXAM DESCRIPTION: 3D SCREENING MAMMO BILAT COMPLETED DATE/TIME: 03/18/2019 2:37 pm REASON FOR STUDY: Z12.31 ENCOUNTER FOR SCREENING MAMMOGRAM FOR MALIGNANT NEOPLASM OF BREAST Z12.31 ENCNTR SCREEN MAMMOGRAM FOR MALIGNANT NEOPLASM OF RAVINDER COMPARISON: Multiple since 2008 EXAM PARAMETERS: Views: Standard craniocaudal and mediolateral oblique views of each breast recorded using digital acquisition and breast tomosynthesis. Read with the assistance of CAD. .[facility] - R2 Filterer Version 9.2 LIMITATIONS: None. FINDINGS: No suspicious masses, suspicious calcifications or architectural distortion. No areas of c oncern. IMPRESSION: NEGATIVE MAMMOGRAM. BIRADS 1. BREAST DENSITY: b. There are scattered areas of fibroglandular density. BIRAD: ASSESSMENT: 1 NEGATIVE RECOMMENDATION: ROUTINE SCREENING COMMENT: The patient has been notified of the results by letter per MQSA requirements. Additional no tification policies are in place for contacting patient with suspicious or incomplete findings. Quality ID #[id number]: The [employer] recommends an annual screening mammogram for women aged 40 years or over. This facility utilizes a reminder system to ensure that all patients receive reminder letters, and/or direct phone calls for appointments. This includes reminders for routine scr eening mammograms, diagnostic mammograms, or other Breast Imaging Interventions when appropriate. Th is patient will be placed in the appropriate reminder system. TECHNICAL DOCUMENTATION: FINDING NUMBER: (1) ASSESSMENT: (1) JOB ID: [id number] [employer]- All Rights Reserved Reading location - IP/workstation name: [email or web address]
== END ==
LOC: WI 13:46
PROVIDERS: ATTEND Family Medicine
DX: Z12.31 Encounter for screening mammogram for malignant neoplasm of breast (principal)
CPT/HCPCS: 77063; 77067

== ENCOUNTER → 2019-08-19 | Outpatient (CLI) | payer BC ==
--- NOTE | 2019-08-19 20:24 | RADIOLOGY REPORT (SQ) ---
CT ABDOMEN PELVIS WITH IV CONTRAST EXAM DATE: 08/19/2019 4:[address] IN TELLER HISTORY: Lower abdominal pain. COMPARISON: 12/26/2014 TECHNIQUE: CT scan of the abdomen and pelvis was performed with IV contrast. This exam was performed according to our departmental dose-optimization program, which includes automated exposure control, adjustment of the mA and/or kV according to patient size and/or use of iterative reconstruction technique. FINDINGS: The lung bases are clear. No pleural or pericardial effusions. There are scattered simple cysts in the liver. There has been a prior cholecystectomy. The common bile duct is dilated measuring 2 cm along with mild intrahepatic ductal dilatation. Spleen, pancreas, adrenal glands, and right kidney are unremarkable. There is a tiny nonobstructing stone in the left kidney. No hydronephrosis. There has been a prior hysterectomy. No small bowel obstruction. The appendix is not visualized. No evidence of acute diverticulitis. No adenopathy, free fluid, or free air is identified. The aorta is normal in caliber. No acute bony findings are seen. No abnormal body wall hernia is identified. IMPRESSION: 1. No acute abdominal or pelvic findings. 2. Tiny nonobstructing stone in left kidney, without hydronephrosis.
== END ==
LOC: RAD 16:27
PROVIDERS: ATTEND Family Medicine
DX: N20.0 Calculus of kidney (principal); K76.89 Other specified diseases of liver; R10.30 Lower abdominal pain, unspecified
CPT/HCPCS: 74177; 82565

== ENCOUNTER → 2020-03-20 | Outpatient (CLI) | payer BC ==
--- NOTE | 2020-03-20 10:00 | WOMENS IMAGING REPORT ---
EXAM DESCRIPTION: BONE DENSITY HIP/SPINE IMAGES COMPLETED DATE/TIME: 03/20/2020 9:46 am REASON FOR STUDY: Z13.820 ENCOUNTER FOR SCREENING FOR OSTEOPOROSIS Z12.31 ENCNTR SCREEN MAMMOGRAM F OR MALIGNANT NEOPLASM OF RAVINDER Z13.820 ENCOUNTER FOR SCREENING FOR OSTEOPOROSIS E28.39 OTHER PRIMARY OVARIAN FAILURE COMPARISON: 03/17/2018. TECHNIQUE: Dual-Energy X-ray Absorptiometry (DEXA) of the AP Spine and Hip. LIMITATIONS: None. FINDINGS: LUMBAR SPINE: The bone mineral density (BMD) measured from L1-L4 in the AP projection correlates with a T-score of -1.5, which is osteopenia as defined by the World Health Organization. BMD Change vs Baseline: 4.7% increase. HIP: The bone mineral density (BMD) measured in the left femoral neck correlates with a T-score of -2.6, w hich is osteoporosis as defined by the World Health Organization. BMD Change vs Baseline: 0.1% decrease. 10 year Fracture Risk Assessment: Major Osteoporotic Fracture: None reported as the T-score in the left femoral neck is below -2.5. Hip Fracture: None reported as the T-score in the left femoral neck is below -2.5. IMPRESSION: 1. LUMBAR SPINE WHO CLASSIFICATION: OSTEOPENIA. 2. HIP WHO CLASSIFICATION: OSTEOPOROSIS. OVERALL ASSESSMENT: WHO CLASSIFICATION: OSTEOPOROSIS. COMMENT: The World Health Organization defines low BMD as follows: T-score: Normal: At or above -1.0 Osteopenia: Between -1.0 and -2.5 Osteoporosis: At or below -2.5 without fractures Established osteoporosis: At or below -2.5 with fractures In general, you may wish to consider: Diagnosis Treatment Follow-up DEXA Normal BMD Prevention 2-3 years Osteopenia Prevention/Therapy 1-2 years Osteoporosis Therapy Yearly TECHNICAL DOCUMENTATION: JOB ID: [id number] 2010 [employer]- All Rights Reserved Reading location - IP/workstation name: [email or web address]
--- NOTE | 2020-03-20 10:24 | WOMENS IMAGING REPORT ---
EXAM DESCRIPTION: 3D SCREENING MAMMO BILAT IMAGES COMPLETED DATE/TIME: 03/20/2020 9:46 am REASON FOR STUDY: Z12.31 ENCOUNTER FOR SCREENING MAMMOGRAM FOR MALIGNANT NEOPLASM OF BREAST Z12.31 ENCNTR SCREEN MAMMOGRAM FOR MALIGNANT NEOPLASM OF RAVINDER Z13.820 ENCOUNTER FOR SCREENING FOR OSTEOPOROS IS E28.39 OTHER PRIMARY OVARIAN FAILURE COMPARISON: 2016 and subsequent EXAM PARAMETERS: Views: Standard craniocaudal and mediolateral oblique views of each breast recorded using digital acquisition and breast tomosynthesis. Read with the assistance of CAD. .[facility] [place] [employer] Version 9.2 LIMITATIONS: None. FINDINGS: No suspicious masses, suspicious calcifications or architectural distortion. No areas of c oncern. IMPRESSION: NEGATIVE MAMMOGRAM. BIRADS 1. BREAST DENSITY: b. There are scattered areas of fibroglandular density. BIRAD: ASSESSMENT: 1 NEGATIVE RECOMMENDATION: ROUTINE SCREENING COMMENT: The patient has been notified of the results by letter per MQSA requirements. Additional no tification policies are in place for contacting patient with suspicious or incomplete findings. Quality ID #[id number]: The [employer] recommends an annual screening mammogram for women aged 40 years or over. This facility utilizes a reminder system to ensure that all patients receive reminder letters, and/or direct phone calls for appointments. This includes reminders for routine scr eening mammograms, diagnostic mammograms, or other Breast Imaging Interventions when appropriate. Th is patient will be placed in the appropriate reminder system. TECHNICAL DOCUMENTATION: FINDING NUMBER: (1) ASSESSMENT: (1) JOB ID: [id number] 2010 [employer]- All Rights Reserved Reading location - IP/workstation name: [email or web address]
== END ==
LOC: WI 08:16
PROVIDERS: ATTEND Family Medicine
DX: Z12.31 Encounter for screening mammogram for malignant neoplasm of breast (principal); M81.0 Age-related osteoporosis without current pathological fracture; Z13.820 Encounter for screening for osteoporosis; E28.39 Other primary ovarian failure
CPT/HCPCS: 77063; 77067; 77080

== ENCOUNTER → 2020-05-30 | Outpatient (CLI) | payer MEDICARE ==
[2020-05-30 10:32] LABS: ABSOLUTE EOSINOPHILS # (AUTO) 0.1 10^3/uL (0.0-0.6); ABSOLUTE LYMPHOCYTES (AUTO) 1.3 10^3/uL (0.5-4.7); ABSOLUTE MONOCYTES (AUTO) 0.3 10^3/uL (0.1-1.4); ABSOLUTE NEUT (AUTO) 4.3 10^3/uL (1.7-8.2); BASOPHILS % (AUTO) 0.7 % (0-2); EOSINOPHILS % (AUTO) 2.3 % (0-6); HEMATOCRIT 39.5 % (36.0-47.0); LYMPHOCYTES % (AUTO) 21.2 % (13-45); MEAN CORPUSCULAR HEMOGLOBIN 25.7 pg (27.0-33.4); MEAN CORPUSCULAR HGB CONC 32.8 g/dL (32.0-36.0); MEAN CORPUSCULAR VOLUME 78 fl (80-97); MONOCYTES % (AUTO) 5.5 % (3-13); PLATELET COUNT 327 10^3/uL (150-450); RED BLOOD COUNT 5.05 10^6/uL (3.72-5.28); SEGMENTED NEUTROPHILS % (AUTO) 70.3 % (42-78); TOTAL CELLS COUNTED % (AUTO) 100 %; WHITE BLOOD COUNT 6.1 10^3/uL (4.0-10.5)
[2020-05-30 10:47] LABS: ALBUMIN 4.2 g/dL (3.5-5.0); ALKALINE PHOSPHATASE 101 U/L (38-126); ANION GAP 9 (5-19); ASPARTATE AMINO TRANSFERASE 20 U/L (14-36); BILIRUBIN,DIRECT 0.2 mg/dL (0.0-0.4); BILIRUBIN,TOTAL 1.1 mg/dL (0.2-1.3); BLOOD UREA NITROGEN 15 mg/dL (7-20); CALCIUM 9.6 mg/dL (8.4-10.2); CARBON DIOXIDE 29 mmol/L (22-30); CHLORIDE 103 mmol/L (98-107); CHOLESTEROL 224.64 mg/dL (0-200); GLUCOSE 98 mg/dL (75-110); IRON(TIBC) 42.2 ug/dL (37-170); POTASSIUM 4.3 mmol/L (3.6-5.0); TOTAL PROTEIN 7.3 g/dL (6.3-8.2); TRIGLYCERIDES 189 mg/dL (<150)
[2020-05-30 10:58] LABS: DIRECT LDL 149 mg/dL (<100)
[2020-05-30 11:05] LABS: FREE T4 (FREE THYROXINE) 2.06 ng/dL (0.78-2.19)
[2020-05-30 11:18] LABS: THYROID STIMULATING HORMONE 0.33 uIU/mL (0.47-4.68)
[2020-05-30 11:39] LABS: VLDL CHOLESTEROL 37.8 mg/dL (10-31)
== END ==
LOC: OD 08:51
PROVIDERS: ATTEND Family Medicine
DX: E53.8 Deficiency of other specified B group vitamins (principal); E78.5 Hyperlipidemia, unspecified; E61.1 Iron deficiency; E55.9 Vitamin D deficiency, unspecified; E89.0 Postprocedural hypothyroidism; Z79.899 Other long term (current) drug therapy
CPT/HCPCS: 36415; 80053; 80061; 82306; 82607; 82728; 83540; 83550; 83735; 84439; 84443; 85025